=== PATIENT | female | born 1980 | race Caucasian/White ===

== ENCOUNTER 2017-02-17 11:05 | Emergency (ER) | payer SELFPAY ==
[~2017-02-17 11:05] MED LIST: ATIVAN0.5 MG PO; AZO TABS95 MG PO; CHANTIX1 MG; CIPRO500 MG PO; DILAUDID; DILAUDID2 MG PO; MULTI VITAMINS W1 MG PO; MULTIVITAMIN1 TAB PO; NITROGLYCERIN0.4 MG; NO HOME MEDS; NO MEDICATIONS; NORCO 10/325 TA1 TAB PO; NORCO 5/325 TAB1 TAB PO; NUPRIN200 M PO; PYRIDIUM200 M1 PO; VICODIN 5/500 T1 TAB PO; ZOFRAN ODT4 MG/UDTAB PO; ZOFRAN4 MG PO
[2017-02-17] MEDS ORDERED: nka (11:25)
[2017-02-17] MEDS ORDERED: IBUPROFEN200 M2 PO (11:37)
[2017-02-17] MEDS ORDERED: ONE DAILY WOME1 EAC3 PO (11:38)
[2017-02-17 11:56] LABS: BASO % 0.3 % (0-2); EOS % 0.1 % (0-7); HCT-HEMATOCRIT 44.4 % (34.0-49.0); HGB-HEMOGLOBIN 14.6 gm/dl (12.0-15.5); IMMATURE GRANULOCYTES ABSOLUTE 0.02 tho/cmm (0-0.03); IMMATURE GRANULOCYTES PERCENT 0.3 % (0-0.3); LYMPH % 7.5 % (20-45); LYMPH ABSOLUTE COUNT 0.6 tho/cmm (0.8-4.5); MCH (MEAN CORPUSCULAR HGB) 29.2 pg (28.0-32.0); MCHC MEAN CORPUSCULAR HGB CONC 32.9 % (32.0-36.0); MCV (MEAN CELL VOLUME) 88.8 fl (82.0-96.0); MONO % 4.7 % (0-12); MONOCYTE ABSOLUTE COUNT 0.4 tho/cmm (0.0-1.2); NEUTROPHIL ABSOLUTE COUNT 6.6 tho/cmm (1.6-8.0); NEUTROPHIL-AUTOMATED 6.6 tho/cmm (1.6-8.0); NEUTROPHILS % 87.1 % (40-80); PLATELET COUNT 214 tho/cmm (150-450); RED CELL DISTRIBUTION WIDTH 12.7 % (12.4-16.4); WHITE BLOOD COUNT 7.6 tho/cmm (4.0-10.0)
[2017-02-17 12:07] LABS: ALB/GLOB RATIO 0.9 (0.8-2.0); ALBUMIN 3.7 g/dl (3.5-5.0); ALKALINE PHOSPHATASE 65 U/L (33-138); ALT/SGPT 26 U/L (12-78); BILIRUBIN,TOTAL 0.7 mg/dl (0-1.5); BLOOD UREA NITROGEN 17 mg/dl (6-24); CALCIUM 8.3 mg/dl (8.5-10.5); CARBON DIOXIDE-VENOUS 24 mmol/L (22-32); CHLORIDE 106 mmol/l (96-110); CREATININE 0.66 mg/dl (0.50-1.10); GLUCOSE 95 mg/dL (70-110); LIPASE 149 U/L (73-393); SODIUM 140 mmol/L (135-145); eGFR VALUE FOR BLACK >90 mL/Min
[2017-02-17 12:08] LABS: ANION GAP 14 mmol/L (0-20); AST/SGOT 31 U/L (10-40); POTASSIUM 3.7 mmol/L (3.7-5.1)
[2017-02-17 14:00] LABS: URINE BILIRUBIN SMALL (NEG); URINE BLOOD MODERATE (NEG); URINE GLUCOSE (UA) NEGATIVE (NEG); URINE KETONE LARGE (NEG); URINE LEUKOCYTE ESTERASE NEGATIVE (NEG); URINE NITRITE NEGATIVE (NEG); URINE PROTEIN SMALL (NEG)
[2017-02-17 14:02] LABS: URINE APPEARANCE CLEAR; URINE COLOR DARK YELLOW
[2017-02-17 14:07] LABS: URINE BACTERIA 1+; URINE MUCUS 2+; URINE WBC 0-1 /[HPF] (0-5)
[2017-02-17] MEDS ORDERED: NORCO 5-325 TA1 EACH PO (14:25)
[2017-02-17] MEDS ORDERED: COMPAZINE10 MG PO (14:25)
== END 2017-02-17 15:14 ==
LOC: EDMED 11:05
PROVIDERS: Emergency Medicine
DX: R10.84 Generalized abdominal pain (principal); R19.7 Diarrhea, unspecified; J44.9 Chronic obstructive pulmonary disease, unspecified; F17.200 Nicotine dependence, unspecified, uncomplicated; Z88.0 Allergy status to penicillin; Z88.5 Allergy status to narcotic agent
CPT/HCPCS: J1170; J1885; J2405; J7030